=== PATIENT | female | born 1955 | race Caucasian/White ===

== ENCOUNTER → 2017-11-27 | Outpatient (CLI) | payer BC, OTHER ==
[2013-08-09 11:32] VITALS: BP 125/69
--- NOTE | 2017-11-27 17:08 | MG ---
Examination: Bilateral diagnostic mammogram and right breast ultrasound. Clinical history: Blood blister on right nipple with nipple changes and nipple tenderness for 2 weeks , as well as a bloody nipple discharge during the mammogram examination. Technique: Multiple digital images of both breasts were obtained. Targeted right breast ultrasound wa s also obtained evaluating the retroareolar region of the right breast. Comparison: 07/01/2013. Findings: The breasts are composed of scattered fibroglandular densities. Benign-appearing calcifications are n oted in the breasts bilaterally. The right nipple is inverted, which is a new finding and apparently has also been present for 2 weeks . No retroareolar mass is evident. No suspicious mass, area of architectural distortion or suspicious cluster of microcalcifications is noted in the left breast. Targeted right breast ultrasound evaluating the retroareolar region of the right breast reveals an in verted nipple with ductal ectasia seen in the retroareolar region and intraductal debris seen in 1 of the ducts central to the nipple. No cystic or solid mass is evident. The study was read remotely. Garcia rgical consult is therefore recommended to exclude the possibility of Paget's disease. An MRI of the breasts, with intravenous contrast, also needs to be considered in the further evaluation. Impression: 1. Inverted right nipple with bloody nipple discharge and skin changes associated with the right nipp le, as well as ductal ectasia with associated intraductal debris seen in the retroareolar region of t he right breast. The study was read remotely. Surgical consult is therefore recommended to exclude th e possibility of Paget's disease. An MRI of the breasts, with intravenous contrast, also needs to be considered in the further evaluation. BI-RADS category 0 (ZERO) - ASSESSMENT INCOMPLETE; ADDITIONAL IMAGING IS NEEDED. Recommend surgical consult. An MRI of the breasts, with intravenous contrast, also needs to be consid ered in the further evaluation of this patient. Diagnostic CAD was utilized and reviewed. * 0 (ZERO) - ASSESSMENT INCOMPLETE; ADDITIONAL IMAGING IS NEEDED. * 0C - ASSESSMENT INCOMPLETE, NEEDS ADDITIONAL IMAGING EVALUATION AND/OR PRIOR MAMMOGRAMS FOR COMPARI SON. * / (ONE) - NEGATIVE. * 2/II (TWO) - BENIGN FINDINGS. * 3/III (THREE) - PROBABLY BENIGN FINDING; SHORT INTERVAL FOLLOW-UP SUGGESTED. * 4/IV (FOUR) - SUSPICIOUS ABNORMALITY; BIOPSY SHOULD BE CONSIDERED. * 5/V - HIGHLY SUSPICIOUS OF MALIGNANCY; BIOPSY SHOULD BE PERFORMED. * 6/IV - KNOWN BIOPSY PROVEN MALIGNANCY-APPROPRIATE ACTION SHOULD BE TAKEN. A NEGATIVE X-RAY REPORT SHOULD NOT DELAY BIOPSY IF A DOMINANT OR CLINICALLY SUSPICIOUS MASS IS PRESENT; 4 TO 8 PERCENT OF CANCERS ARE NOT IDENTIFIED BY X-RAY. A NEGATIVE REPORT MAY REINFORCE THE CLINICAL IMPRESSION. ADENOSIS AND DENSE BREASTS MAY OBSCURE AN UNDERLYING NEOPLASM. Reported By:
== END ==
LOC: RAD 14:39
PROVIDERS: ATTEND Internal Medicine
DX: N64.59 Other signs and symptoms in breast (principal); N64.52 Nipple discharge
CPT/HCPCS: 76642; 77066